=== PATIENT | male | born 1950 ===

== ENCOUNTER → 2021-01-14 14:23 | Outpatient (CLI) | payer MEDICARE, SELFPAY ==
--- NOTE | ~2021-01-14 | XR_ITS ---
EXAMINATION: XR sacroiliac joints min 3V DATE: 01/14/2021 15:01 INDICATION: Sacroiliac joint pain TECHNIQUE: AP and left and right oblique views of the sacroiliac joints were obtained. COMPARISON: 10/20/2017 FINDINGS: Bone alignment is normal. Sacral arches are intact. No fracture. Bilateral sacroiliac joint spaces ap pear normal and symmetric. No erosions to suggest inflammatory sacroiliitis. Bilateral hip joint spac es are also normal. Mild osteoarthritis at the bilateral lower lumbar facet joints. IMPRESSION: 1. Mild lower lumbar facet osteoarthritis. Otherwise unremarkable study with normal bilateral sacral iliac joints. Reviewed, dictated and finalized at location B. IMPRESSION: 1. Mild lower lumbar facet osteoarthritis. Otherwise unremarkable study with no rmal bilateral sacral iliac joints.
== END ==
DX: M53.3 Sacrococcygeal disorders, not elsewhere classified (principal); R53.81 Other malaise; M79.10 Myalgia, unspecified site; M25.50 Pain in unspecified joint; M51.36 Other intervertebral disc degeneration, lumbar region
CPT/HCPCS: 72202

== ENCOUNTER 2021-09-29 10:26 | Outpatient (CLI) | payer MEDICARE, SELFPAY ==
--- NOTE | ~2021-09-29 | US_ITS ---
US breast BI limited DATE: 09/29/2021 11:04 INDICATION: Nipple pain for 2 months TECHNIQUE: Real-time imaging of both breasts COMPARISON: None FINDINGS: No suspicious mass, shadowing, cyst or other sonographic abnormality in either breast is de tected IMPRESSION: BI-RADS Category 1: Negative Reviewed, dictated and finalized at Location A. Reviewed, dictated and finalized at location A.
== END 2021-09-29 10:27 | disposition home or self-care (01) ==
DX: N64.4 Mastodynia (principal)
CPT/HCPCS: 76642

== ENCOUNTER → 2023-01-07 08:09 | Outpatient (CLI) | payer MEDICARE, SELFPAY ==
--- NOTE | ~2023-01-07 | US_ITS ---
US abdomen limited INDICATION: Abnormal liver enzymes PROCEDURE: Realtime right upper abdominal ultrasound. COMPARISON: No prior studies for comparison. FINDINGS: The pancreas is normal without focal mass or pancreatic ductal dilation. Liver echotexture is normal without focal mass or intrahepatic biliary dilatation. There is normal directional flow i n the portal vein. The gallbladder is normal without stones, gallbladder wall thickening or pericholecystic fluid. Comm on bile duct measures 4.5 mm. No sonographic Gan's sign. IMPRESSION: 1: Normal limited abdominal ultrasound. Reviewed, dictated and finalized at location B.
== END ==
DX: R74.8 Abnormal levels of other serum enzymes (principal)
CPT/HCPCS: 76705

== ENCOUNTER 2025-01-20 19:25 | Emergency (ER) | payer MEDICARE, OTHER, SELFPAY ==
--- NOTE | ~2025-01-20 | CT_ITS ---
EXAMINATION: CT lumbar spine wo con COMPARISON: None HISTORY: Pain, prev sugery, leg numbess TECHNIQUE: Axial images were obtained through the spine without IV contrast. Coronal, sagittal reconstruction images were obtained from the axial views. CT scan performed using dose optimization techniques including the following automated exposure control; adjustment of mA and/or kV; use of iterative reconstruction technique. Automatic exposure control was used to reduce radiation dose. Permanent radiation dose record is archived to PACS. FINDINGS: No acute fracture identified. 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 The remaining disc heights are intact. Soft tissues unremarkable. Impression: No acute abnormality. Reviewed, dictated and finalized at location P. Impression: No acute abnormality.
[2025-01-20 20:13] VITALS: BP 166/74; PULSE 100; RESP 18; TEMP 36.6; O2SAT 95
--- NOTE | 2025-01-20 23:00 | ED.GENADULT ---
HPI - General Adult General Chief complaint: Extremity Problem,Nontraumatic Stated complaint: RIGHT LEG PAIN/NUMBNESS/TINGLING Time Seen by Provider: 01/20/25 22:44 Source: patient and family Mode of arrival: ambulatory Limitations: no limitations History of Present Illness HPI narrative: Patient is a 74-year-old male presents to the emergency department complaining of shooting pain and paresthesias to his right leg that started this afternoon around 3:00 p.m. when he was walking upstairs insert only felt the shooting pain going down his right leg along the posterior aspect all the way down to his foot. Patient notes he [facility] and has an upcoming appointment with his spinal specialist in 1 week and has a massage scheduled for Tuesday. Patient is that he has not had any radiculopathy since having the surgery here patient has the pain comes from is right buttock and not from his back. Patient states seems to be worsening standing straight up. Patient took his home tramadol, gabapentin, and methocarbamol prior to coming in and is already feeling a lot better. Patient notes that the paresthesias along the posterior of aspect of his leg seen event resolved but he is still having new numbness to the lateral aspect of his right foot which he had had before. Patient notes that he has chronic decreased dorsiflexion strength of his right ankle. Patient also notes that he has never had reflexes in his bilateral patella or Achilles whenever they get tested so that is not new. Patient denies urinary incontinence, stool incontinence, use of blood thinners, fever, saddle anesthesia, chest pain, difficulty breathing, back pain. Patient notes he has not been on any steroids in a long time heavy since before the surgery. Patient denies any new weakness. Related Data Home Medications ?Medication ?Instructions ?Recorded ?Confirmed ?Last Taken ?Type abatacept 50 mg/0.4 mL mg subcut 10/28/21 10/28/21 Unknown History subcutaneous syringe (Orencia) allopurinol 100 mg tablet 100 mg PO DAILY 10/28/21 10/28/21 Unknown History alprazolam 0.5 mg tablet 0.5 mg PO DAILY 10/28/21 10/28/21 Unknown History ascorbic acid (vitamin C) 1,000 mg 1 g PO DAILY 10/28/21 10/28/21 Unknown History capsule aspirin 81 mg tablet,delayed 81 mg PO DAILY 10/28/21 10/28/21 Unknown History release atorvastatin 10 mg tablet 10 mg PO DAILY 10/28/21 10/28/21 Unknown History buspirone 15 mg tablet 15 mg PO BID 10/28/21 10/28/21 Unknown History chlorthalidone 25 mg tablet 25 mg PO DAILY 10/28/21 10/28/21 Unknown History cholecalciferol (vitamin D3) 25 25 mcg PO DAILY 10/28/21 10/28/21 Unknown History mcg (1,000 unit) capsule doxazosin 1 mg tablet 1 mg PO DAILY 10/28/21 10/28/21 Unknown History leflunomide 20 mg tablet 20 mg PO DAILY 10/28/21 10/28/21 Unknown History lisinopril 30 mg tablet 30 mg PO DAILY 10/28/21 10/28/21 Unknown History testosterone enanthate 75 mg/0.5 75 mg subcut WEEKLY 10/28/21 10/28/21 Unknown History mL subcutaneous auto-injector vitamin B complex (B 1 tablet PO DAILY 10/28/21 10/28/21 Unknown History Complex-Vitamin B12 tablet) zolpidem 10 mg tablet PO 10/28/21 10/28/21 Unknown History Allergies Allergy/AdvReac Type Severity Reaction Status Date / Time oxycodone Allergy Severe Depression Verified 01/20/25 20:17 Review of Systems Review of Systems: A 10 system review of systems was completed on the patient and is negative except for what is stated in the HPI. Nursing and ancillary documentation was reviewed. PMFSH Past Medical History Medical History Anxiety Arthritis Gout Joint pain Weakness Family History Family History (Updated 10/28/21 @ 10:46 by Kamila Oden MA) Other Breast cancer Hypertension Social History Social History (Updated 10/28/21 @ 10:47 by Kamila Oden MA) Smoking status: Never smoker Alcohol intake: current Substance use: never Substance use type: does not use Living arrangements: with family Exam Narrative: CONST: No acute distress. Well nourished. HENMT: Head is normocephalic and atraumatic. Moist mucous membranes. No posterior oropharynx erythema. EYES: No scleral icterus. No conjunctival injection or pallor. PERRL. NECK: No meningeal signs. RESP: Able to speak in full sentences. Normal respiratory effort. CTAB. CARDIO: Regular rate. Regular rhythm. 2+ DP and radial pulses bilaterally. GI: Nondistended. No tenderness to palpation. Soft. : No CVA tenderness to palpation. SKIN: No rashes or lesions noted on exposed skin. NEURO: Oriented x3. Moves all extremities. EXTREM/MSK/BACK: No pedal edema. No midline vertebral tenderness to palpation or palpable step-offs. Negative straight leg raise bilaterally. Bilateral patellar and Achilles reflexes are absent. Patient is on the decreased dorsiflexion strength of the right ankle compared to the left. Bilateral plantar strength is symmetric. Sensation intact to light touch throughout the bilateral lower extremities except for the S1 distribution mother with lower extremity has lack of sensation to light touch. Capillary refill is less than 2 seconds in all toes of the bilateral lower extremities. No strength deficits of the bilateral knees bilateral hips. No saddle anesthesia. PSYCH: Normal affect. Course Vital Signs Vital signs: Vital Signs Temperature 97.9 F 01/20/25 20:13 Pulse Rate 100 01/20/25 20:13 Respiratory Rate 18 01/20/25 20:13 Blood Pressure 166/74 H 01/20/25 20:13 Pulse Oximetry 95 01/20/25 20:13 Oxygen Delivery Room Air 01/20/25 20:13 Temperature 97.9 F 01/20/25 20:13 Pulse Rate 100 01/20/25 20:13 Respiratory Rate 18 01/20/25 20:13 Blood Pressure 166/74 H 01/20/25 20:13 Pulse Oximetry 95 01/20/25 20:13 Oxygen Delivery Room Air 01/20/25 20:13 Medical Decision Making [facility] Narrative Medical decision making narrative: Patient presents with the above complaint. Initial vitals are remarkable for no significant abnormalities. Physical examination as noted above. Differential diagnosis includes was not limited to: Lumbar radiculopathy, muscle spasm, piriformis syndrome. Patient was ordered a CT of the lumbar spine from the waiting room due to nurse reporting new numbness and her recent surgery. CT of the lumbar spine report shows no evidence of acute fracture or traumatic subluxation. Posterior spinal fusion L4-L5 with interbody disc age. Overlying paraspinal edema and subcutaneous stranding, likely postsurgical in nature. No definite discrete fluid collection. Significant central canal soft tissue fullness at L4-L5 level. Consider MRI for further evaluation. I spoke with Neurosurgery on-call Dr. Ponce who notes to start the patient on a Medrol Dosepak and have follow-up on Tuesday with his spinal specialist for an MRI with strict return precautions, notes that he is going to send an email to Dr. Ayala to arrange this. Patient ordered dexamethasone and prescription for a Medrol Dosepak. Patient was reassessed at the bedside. No changes in physical exam. Patient is in no acute distress. The patient has remained stable throughout the entire ED visit. Counseled patient regarding diagnostic results and potential diagnosis. Anticipatory guidance provided. Patient and educated on signs and symptoms of cord compression and reasons to immediately return to the emergency department. Patient instructed to follow up with Dr. Tomlin tomorrow for an MRI. Patient counseled on: false reassurance from an emergency department evaluation; no current evidence of a medical emergency; return immediately for any new, recurrent, worsening, concerning, or refractory symptoms. Patient prescribed medrol dose pack. Prescription sent to preferred pharmacy. Medications discussed with patient. Additional verbal and printed discharge instructions were given and discussed with the patient. Patient verbally acknowledges understanding of condition and discharge instructions. All questions were answered to the patient's satisfaction. Patient is in agreement with the plan of care. The patient is stable for discharge and was discharged without incident. Vital Signs Vital Signs: Vital Signs Temperature 97.9 F 01/20/25 20:13 Pulse Rate 100 01/20/25 20:13 Respiratory Rate 18 01/20/25 20:13 Blood Pressure 166/74 H 01/20/25 20:13 Pulse Oximetry 95 01/20/25 20:13 Oxygen Delivery Room Air 01/20/25 20:13 Temperature 97.9 F 01/20/25 20:13 Pulse Rate 100 01/20/25 20:13 Respiratory Rate 18 01/20/25 20:13 Blood Pressure 166/74 H 01/20/25 20:13 Pulse Oximetry 95 01/20/25 20:13 Oxygen Delivery Room Air 01/20/25 20:13 Discharge Plan Discharge Clinical Impression: Numbness of right foot Radiculopathy Qualifiers: Spinal region: unspecified Qualified Code(s): M54.10 - Radiculopathy, site unspecified Patient Disposition: Home Condition: Stable Instructions: Antibiotic Form, Paresthesia (ED), Lumbar Radiculopathy (ED) Additional Instructions: I spoke with our neurosurgeon Dr. Ponce who recommends to start you on a Medrol Dosepak, I have prescribed to a Medrol Dosepak, our neurosurgeon also notes that he is sending an email to your spinal specialist Dr. Sutherland to became aware of what is going on and our neurosurgeon 1 C2 follow-up with your spinal specialist Tuesday for an MRI, call your spinal specialist 1st thing in morning to arrange this. Take the steroids as prescribed. Take your home muscle relaxers and pain medications as prescribed. Return immediately to the emergency department for any new or concerning symptoms especially urinary incontinence, stool incontinence, fever, lack of sensation in your groin, new weakness, or any emergent concerns for life, limb, eyesight. Patient Language: Urdu Prescriptions: New methylprednisolone [Medrol (Gallo)] 4 mg tablets,dose pack See Rx Instructions PO .COMPLEX Qty: 21 0RF Rx Instructions: for 6 days No Action leflunomide 20 mg tablet 20 mg PO DAILY atorvastatin 10 mg tablet 10 mg PO DAILY lisinopril 30 mg tablet 30 mg PO DAILY chlorthalidone 25 mg tablet 25 mg PO DAILY doxazosin 1 mg tablet 1 mg PO DAILY allopurinol 100 mg tablet 100 mg PO DAILY buspirone 15 mg tablet 15 mg PO BID alprazolam 0.5 mg tablet 0.5 mg PO DAILY testosterone enanthate 75 mg/0.5 mL auto-injector 75 mg subcut WEEKLY Orencia 50 mg/0.4 mL syringe subcut aspirin 81 mg tablet,delayed release (DR/EC) 81 mg PO DAILY cholecalciferol (vitamin D3) 25 mcg (1,000 unit) capsule 25 mcg PO DAILY vitamin B complex [B Complex-Vitamin B12] Tablet 1 tablet PO DAILY ascorbic acid (vitamin C) 1,000 mg capsule 1 g PO DAILY zolpidem 10 mg tablet PO Follow-up/Referrals: John Sutherland M.D. [Physician, Neurosurgery] - 1 Day UNKNOWN,DOCTOR [Primary Care Provider] Time of Disposition: 23:19
--- OUTSIDE RECORDS SUMMARY | 2025-01-20 23:06 | XMS_ITS | Encounter Summary ---
Author Organization [employer] Address [address] [place] [address] Care Team Providers Care Pulp Grinder And Blender Name Role Phone George Beyer MD Primary Care Provider [phone] Encounter Details Date Type Department Care Team (Latest Contact Info) Description 03/21/2008 Outpatient Historical [facility] Francisco Jordan MD [address] [facility] [address] [place] [address] Unspecified Sleep Disturbance; Unspecified Sleep Apnea; Other Dyspnea and Respiratory Abnormality Social History Tobacco Use Types Packs/Day Years Used Date Smoking Tobacco: Never Assessed Sex and Gender Information Value Date Recorded Sex Assigned at Not on file Legal Sex Male 5:39 AM [employer] Gender Identity Not on file Sexual Orientation Not on file documented as of this encounter Plan of Treatment Not on file documented as of this encounter Visit Diagnoses Diagnosis Sleep disturbance, unspecified Unspecified sleep apnea Other dyspnea and respiratory abnormality documented in this encounter Care Teams Pulp Grinder And Blender Relationship Specialty Start Date End Date George Beyer MD [address] [place] [address] PCP - General 02/29/08 documented as of this encounter
--- OUTSIDE RECORDS SUMMARY | 2025-01-20 23:06 | XMS_ITS | Encounter Summary ---
Author Organization [facility] Healthcare Address [address] [place] [address] Care Team Providers Care [employer] Business Teacher Name Role Phone Nicol Nielsen MD Unavailable Nicol Nielsen MD Primary Care Provider [phone] John Sutherland MD Unavailable [phone] Encounter Details Date Type Department Care Team (Late st Contact Info) Description 09/02/2023 Orders Only Internal Medicine Kathy Kolb, RUSSEL [address] [place], [place] [id number] Annual visit for general adult medical examination with abnormal findings (Primary Dx) Social History Tobacco Use Types Packs/Day Years Used Date Smoking Tobacco: Former Smokeless Tobacco: Never Alcohol Use Standard Drinks/Week Comments Yes 0 (1 standard drink = 0.6 oz pur e alcohol) AUDIT-C Answer Date Recorded Q1: How often do you have a drink containing alcohol? 4 or more times a week 07/09/2021 Q2: How many drinks containi ng alcohol do you have on a typical day when you are drinking? 1 or 2 Q3: How often do you have si x or more drinks on one occasion? Never 07/09/2021 Personal Safety Answer Date Recorded Getting School Help Needed Not on file 03/24 Sex and Gender Information Value Date Recorded Sex Assigned at Not on file Legal Sex Male 11:29 PM RESIDENT INTERN Gender Identity Male 01/04/2024 5:29 PM CDT Sexual Orientation Straight 10/17/2019 5: 47 PM CDT documented as of this encounter Plan of Treatment Upcoming Encounters Date Type Department Care Team (Late st Contact Info) Description 01/25/2025 7:30 AM CDT Hospital Encounter [facility] [place] [phone] Abner Brambila MD [address] [facility] [address] [place] [address] 01/25/2025 7:30 AM CDT Anesthesia Event [facility] [address] [place] [phone] Karishma Heller NP [address] [place] [address] 01/25/2025 7:30 AM CDT - 01/25/2025 10:00 AM CDT Surgery [facility] [place] [phone] Abner Brambila MD [id number] [place] [address] Laparoscopic Cholecystectomy with Cholangiograms, possible Open Scheduled Orders Name Type Priority Associated Diagnoses Orde r Schedule CBC with auto differential Lab Routine Annual visit for general adult medical examination with abnormal findings Expected: 09/05/2023, Expires: 09/01/2024 Lipid panel Lab Routine Annual visit for general adult medical examination with abnormal findings Expected: 09/02/2023, Expires: 09/01/2024 Thyroid Function Snyder Lab Routine Annual visit for general adult medical examination with abnormal findings Expected: 09/02/2023, Expires: 09/01/2024 Comprehensive metabolic panel Lab Routine Annual visit for general adult medical examination with abnormal findings Expected: 09/02/2023, Expires: 09/01/2024 CRP (cardiac risk) Lab Routine Annual visit for general adult medical examination with abnormal findings Expected: 09/05/2023, Expires: 09/01/2024 Gamma GT Lab Routine Annual visit for general adult medical examination with abnormal findings Expected: 09/05/2023, Expires: 09/01/2024 Hemoglobin A1c Lab Routine Annual visit for general adult medical examination with abnormal findings Expected: 09/05/2023, Expires: 09/01/2024 Insulin, total Lab Routine Annual visit for general adult medical examination with abnormal findings Expected: 09/05/2023, Expires: 09/01/2024 Urinalysis reflex to microscopic and culture Urine, clean voided Microbiology Routine Annual visit for general adult medical examination with abnormal findings Expected: 09/05/2023, Expires: 09/01/2024 Scheduled Procedures Name Priority Associated Diagnoses Date/Ti me LAPAROSCOPIC CHOLECYSTECTOMY WITH CHOLANGIOGRAMS Gall stones Biliary sludge Gallbladder polyp Ventral hernia without obstruction or gangrene 01/25/2025 7:30 AM CDT REPAIR UMBILICAL HERNIA Gall stones Biliary sludge Gallbladder polyp Ventral hernia without obstruction or gangrene 01/25/2025 7:30 AM CDT documented as of this encounter Results * (ABNORMAL) CBC with auto differential (10/21/2023 8:23 AM CDT) Pathologist [facility] WBC 7.8 3.8 - 9.9 K/cumm Hgb 12.1(L) 13.0 - 17.5 g/dL CERNER CH Hct 39.3 38.9 - 50.3 % CERNER CH Plt 244 150 - 400 K/cumm [facility] CH MPV 10.4 9.1 - 12.3 fL CERNER RBC 3.66(L) 4.30 - 5.80 M/cumm [facility] CH MCV 107.4(H) 81.3 - 96.4 fL CERNER MCH 33.1 27.1 - 33.3 pg [facility] CH MCHC 30.8(L) 32.3 - 35.7 g/dL [facility] CH RDW CV 14.5 11.1 - 14.9 % C[facility] CH RDW SD 57.2(H) 35.7 - 48.1 fL [facility] NRBC abs 0.00 0.00 - 0.01 K/cumm [facility] CH Blood 10/21/2023 8:23 AM CDT 10/21/2023 2:00 PM CDT Kathy Kolb NP LAB [place]LOOD [place] [address] [address] [place] [address] * (ABNORMAL) Comprehensive metabolic panel (10/21/2023 8:23 AM CDT) Sodium 139 135 - 145 mmol/L Potassium, pl 5.6(H) 3.3 - 4.9 mmol/L [facility] Chloride 106 97 - 110 mmol/L [facility] CH CO2 22 22 - 32 mmol/L [facility] CH Anion gap 11 2 - 15 mmol/L [facility] BUN 28(H) 6 - 25 mg/dL [facility] Creatinine 1.33(H) 0.80 - 1.30 mg/dL [facility] Glucose 94 70 - 199 mg/dL CERNER CH Comment: Interpretive Data Fasting glucose >/= 126 mg/dl is diagnostic for diabetes. Fasting is defined as no caloric intake for at least 8 hours. Fasting glucose between 100 mg/dl to 125 mg/dl is diagnostic of prediabetes. In a patient with classic symptoms of hyperglycemia or hyperglycemic crisis, a random glucose >/= 200 mg/dl is diagnostic for diabetes. In the absence of unequivocal hyperglycemia, results should be confirmed by repeat testing. The classification and Diagnosis of Diabetes Diabetes Care 202; 46: S19-S40. Current interpretive data was last revised 2022. Calcium 9.2 8.5 - 10.3 mg/dL [facility] Bilirubin, total 0.6 0.1 - 1.2 mg/dL [facility] CH Protein, pl 6.9 6.5 - 8.5 g/dL [facility] Albumin 4.1 3.5 - 5.0 g/dL [facility] Alk phos 55 40 - 130 Units/L [facility] ALT 33 7 - 55 Units/L [facility] AST 24 10 - 50 Units/L [facility] Blood 10/21/2023 8:23 AM CDT 10/21/2023 2:00 PM CDT Kathy Kolb NP LAB BLOOD ORDERABLES Final Result Performing Organization Address [facility]/ZIP Co de Phone Number GERTRUDIS WARNER [phone] [address] [place] [place] [address] * CRP (cardiac risk) (10/21/2023 8:23 AM CDT) Pathologist [facility] hsCRP 0.87 mg/L Comment: Interpretive data Adult only - values greater than or equal to 10 mg/L are consistent with infection or inflammation. Individuals with evidence of active infection, systemic inflammatory processes, or trauma should not be tested until these conditions have abated. When using HS CRP to assess cardiovascular risk, two measurements should be taken, two weeks apart (averaging results). The CDC/AHA recommended the following HS CRP cut off points (tertiles) for CVD assessment. Adult low risk <1.0 mg/L Average risk 1.0 - 3.0 mg/L High Risk >3.0 mg/L Current interpretive data was last revised on 2017. Testing performed by: [facility], [address] [place]., [address] Blood 10/21/2023 8:23 AM CDT 10/24/2023 8:55 AM CDT us Kathy Kolb NP LAB BLOOD ORDERABLES Final Result Performing Organization Address [facility] Co de Phone Number GERTRUDIS WARNER [phone] [address] [place] [place] [address] * Gamma GT (10/21/2023 8:23 AM CDT) GGT 37 10 - 50 Units/L Blood 10/21/2023 8:23 AM CDT 10/21/2023 2:00 PM CDT us Kathy Kolb WIRE CHIEF LAB BLOOD ORDERABLES Final Result Performing Organization Address City/[facility]/ZIP Co de Phone Number GERTRUDIS WARNER [phone] [address] [place] [address] * (ABNORMAL) Hemoglobin A1c (10/21/2023 8:23 AM CDT) Pathologist [facility] Hgb A1C 5.7(H) 4.0 - 5.6 % Estimated Average Glucose 117 mg/dL GERTRUDIS WARNER Comment: The ADA recommends reporting an estimated Average Glucose (eAG) with all Hemoglobin A1c results using the equation derived from a study of 507 normal and diabetic adults. Minority populations were underrepresented and children were not included. (Diabetes Care 31:9246-4732, 2008). The eAG is not equivalent to a fasting glucose. Blood 10/21/2023 8:23 AM CDT 10/21/2023 2:00 PM CDT Kathy Kolb NP LAB BLOOD ORDERABLES Final Result Performing Organization Address City/[facility] Co de Phone Number GERTRUDIS [phone] [address] [employer] [place], [place] [id number] * Insulin, total (10/21/2023 8:23 AM CDT) [facility] Insulin See Comment 2.6 - 25.0 mcIUnit/m L Comment: Testing performed by: [facility], [place] [address]. Results to follow. Testing performed by: [facility], [address] [facility], [place]., [address] Blood 10/21/2023 8:23 AM CDT 10/21/2023 8:00 PM CDT Kathy Kolb NP LAB BLOOD ORDERABLES Final Result GERTRUDIS [address] [place] [address] * Lipid panel (10/21/2023 8:23 AM CDT) [facility] Cholesterol 128 30 - 199 mg/dL Comment: Interpretive Data Ages < or = 19 years Acceptable: <170 mg/dL Borderline high: 170-199 mg/dL High: >or= 200 mg/dL Ages > or = 20 years Desirable: <200 mg/dL Borderline high: 200-239 mg/dL High: >or= 240 mg/dL Literature References: 1. Expert Panel on Integrated Guidelines for Cardiovascular Health and Risk Reduction in Children and Adolescents. Pediatrics 2011;128:S213 2. NCEP Expert Panel. Circulation 2004;110:227 Current Interpretive Data was last revised on 2017. Triglycerides 47 <=149 mg/dL GERTRUDIS Comment: Interpretive Data Ages < or = 9 years Acceptable: <75 mg/dL Borderline high: 75-99 mg/dL High: >or= 100 mg/dL Ages 10 to 20 years Acceptable: <90 mg/dL Borderline high: 90-129 mg/dL High: >or= 130 mg/dL Ages > or = 20 years Desirable: <150 mg/dL Borderline high: 150-199 mg/dL High: 200-499 mg/dL Very high: >or= 499 mg/dL Literature References: 1. Expert Panel on Integrated Guidelines for Cardiovascular Health and Risk Reduction in Children and Adolescents. Pediatrics 2011;128:S213 2. NCEP Expert Panel. Circulation 2003;110:227 Current Interpretive Data was last revised on 2017. HDL 51 >=40 mg/dL GERTRUDIS Comment: Interpretive Data Ages < or = 19 years Acceptable: >45 mg/dL Borderline low: 40-45 mg/dL Low: <40 mg/dL Ages > or = 20 years Desirable: >or= 60 mg/dL Low: <40 mg/dL Literature References: 1. Expert Panel on Integrated Guidelines for Cardiovascular Health and Risk Reduction in Children and Adolescents. Pediatrics 2011;128:S213 2. NCEP Expert Panel. Circulation 2003;110:227 Current Interpretive Data was last revised on 2017. LDL, calculated 68 <=129 mg/dL GERTRUDIS Comment: Interpretive Data Ages < or = 19 years Acceptable: <110 mg/dL Borderline high: 110-129 mg/dL High: >or= 130 mg/dL Ages > or = 20 years Optimal: <100 mg/dL Near optimal: 100-129 mg/dL Borderline high: 130-159 mg/dL High: >160 mg/dL Literature References: 1. Expert Panel on Integrated Guidelines for Cardiovascular Health and Risk Reduction in Children and Adolescents. Pediatrics 2011;128:S213 2. NCEP Expert Panel. Circulation 2003;110:227 Current Interpretive Data was last revised on 2017. Non-HDL Cholesterol 77 mg/dL GERTRUDIS Comment: Interpretive Data Ages < or = 19 years Acceptable: <120 mg/dL Borderline high: 120-144 mg/dL High: >145 mg/dL Ages > or = 20 years When triglycerides are >200 mg/dL, Non-HDL cholesterol is a secondary target of therapy with treatment goals that are 30 mg/dL greater than the LDL cholesterol target. Literature References: 1. Expert Panel on Integrated Guidelines for Cardiovascular Health and Risk Reduction in Children and Adolescents. Pediatrics 2011;128:S213 2. NCEP Expert Panel. Circulation 2004;110:227 Current Interpretive Data was last revised on 2017. Chol/HDL ratio 3 [facility] Blood 10/21/2023 8:23 AM CDT 10/21/2023 2:00 PM CDT Kathy Kolb NP LAB BLOOD ORDERABLES Final Result Performing Organization Address [facility] de Phone Number GERTRUDIS [address] [place] [address] * Thyroid Function Snyder (10/21/2023 8:23 AM CDT) TSH 0.53 0.30 - 4.20 mcIUnit/mL Blood 10/21/2023 8:23 AM CDT 10/21/2023 2:00 PM CDT Kathy Kolb NP LAB BLOOD ORDERABLES Final Result Performing Organization Address [facility] de Phone Number [facility] [address] [facility] [place] [address] * Urinalysis reflex to microscopic and culture Urine, clean voided (10/21/2023 8:23 AM CDT) Color, ur Straw Yellow Clarity, ur Clear Clear [facility] Specific gravity, ur 1.011 1.003 - 1.030 [facility] pH, urine 5.0 GERTRUDIS Comment: Interpretive Data U rine pH is affected by diet, medications, systemic acid-base disturbances, and renal tubular function. pH may affect urinary stone formation. For example, urine pH below 6.0 may help reduce the tendency for calcium phosphate stones and pH greater than 6.0 may reduce the tendency for uric acid stone formation. Source: [facility] Current Interpretive Data was last revised on 2017 Protein, ur ql Negative Negative [facility] CH Glucose, ur ql Negative Negative [facility] Ketones, ur Negative Negative [facility] CH Bilirubin, ur Negative Negative [facility] CH Blood, ur Negative Negative [facility] Urobilinogen, ur <2.0 <2.0 mg/dL [facility] Nitrite, ur Negative Negative [facility] Leukocyte esterase, ur Negative Negative [facility] CH UA reflex comment Reflex conditions for microscopic UA and culture not met. CERNER Urine, clean voided 10/21/2023 8:23 AM CDT 10/21/2023 1:57 PM CDT us Kathy Kolb NP LAB MICROBIOLOGY - GENERAL ORDERABLES Final Result GERTRUDIS [address] [address] [place] [address] documented in this encounter Visit Diagnoses Diagnosis Annual visit for general adult medical examination with abnormal findings- Primary Gall stones Calculus of gallbladder without mention of cholecystitis or obstruction Biliary sludge Other specified disorders of biliary tract Gallbladder polyp Cholesterolosis of gallbladder Ventral hernia without obstruction or gangrene Unspecified ventral hernia without mention of obstruction or gangrene documented in this encounter Additional Health Concerns Infection Onset Date Last Indicated Resolved Time COVID: Suspected 04/30/2024 04/30/2024 04/30/2024 9:54 PM RESIDENT INTERN documented as of this encounter Care Teams [employer] Business Teacher Relationship Specialty Start Date End Date Nicol Nielsen MD [address] [place] [address] PCP - General Internal Medicine 10/09/21 Nicol Nielsen MD Referring Physician Internal Medicine 11/10/17 [place] [address] [place] [address] Surgeon Neurosurgery 10/17/24 documented as of this encounter
--- OUTSIDE RECORDS SUMMARY | 2025-01-20 23:06 | XMS_ITS | Clinical Summary ---
Author Organization [facility] Address [address] [place] [address] Phone Care Team Providers Care Campus Ambassador Name Role Phone George Beyer MD Primary Care Provider [phone] Allergies No known active allergies Medications NAPROXEN 500 mg Oral Tab Take 500 mg by mouth 2 times daily with meals. Active HYDROCODONE-AC ETAMINOPHEN 5-500 mg Oral Tab Take 1 Tab by mouth every 4 hours as needed for Pain. Active TESTOSTERONE CYPIONATE 200 mg/mL IM Oil Inject 200 mg by intramuscular injection see administration instructions. One injection Monthly Active AMBIEN CR 12.5 mg Oral TbMP Take 12.5 mg by mouth nightly as needed for Insomnia. Active atorvastatin (LIPITOR) 10 mg Oral TabIndications :Hyperlipidemi a Take 1 Tab by mouth daily. 90 Tab 3 03/13/200 8 Active Active Problems Problem Noted Date Diagnosed Date Obstructive sleep apnea (adult) (pediatric) 08/09 Routine general medical exam ination at a health care facility 03/06/2008 Screening for prostate cancer 03/06/2008 Male hypogonadism 03/05/2008 Sleep apnea 03/05/2008 Family History Medical History Relation Name Comments Healthy Brother Healthy Daughter Stroke Father Cancer Mother Diabetes Mother Healthy Sister 1 Healthy Sister 2 Healthy Son Colon Cancer Neg Hx Relation Name Status Comments Brother Alive Daughter Alive Father Mother Sister 1 Alive Sister 2 Alive Son Alive Social History Tobacco Use Types Packs/Day Years Used Date Smoking Tobacco: Former Cigarettes Q uit: 03/05/1991 Alcohol Use Standard Drinks/Week Comments Yes 11.7 (1 standard drink = 0.6 oz pure alcohol) Sex and Gender Information Value Date Recorded Sex Assigned at Not on file Legal Sex Male 5:39 AM CABLEMAN Gender Identity Not on file Sexual Orientation Not on file Last Filed Vital Signs Vital Sign Reading Time Taken Comments Blood Pressure 124/72 03/05/2008 10:39 AM CABLEMAN B/ P IN RA Pulse 72 03/05/2008 10:39 AM CABLEMAN Temperature 37.2 C (98.9 F) 03/05/2008 10:39 AM CABLEMAN Respiratory Rate - - Oxygen Saturation - - Inhaled Oxygen Concentration - - Weight 100.2 kg (221 lb) 03/05/2008 10:39 AM CABLEMAN Height 180.3 cm (5' 11) 03/05/2008 10:39 AM CABLEMAN Body Mass Index 30.82 03/05/2008 10:39 AM CABLEMAN Plan of Treatment Health Maintenance Due Date Last Done Comments DTAP/TDAP/TD VACCINES (1 - Tdap) 09/13/1970 FIT-DNA Q 3 years 09/13/1996 FIT/FOBT Q 1 year 09/13/1996 Flex Sig/CT Colonography Q 5 years 09/13/1996 PNEUMOCOCCAL VACCINE 50+ YEARS (1 of 1 - PCV) 09/14/19 02 ZOSTER VACCINE (1 of 2) 09/13/2001 COLORECTAL SCREENING 03/05/2013 03/05/2003 Colorectal Cancer Screening 03/05/2013 INFLUENZA VACCINE (#1) 2024 RSV VACCINE (60+ or ) (1 - 1-dose 75+ series) 09/13/2026 Care Teams Campus Ambassador Relationship Specialty Start Date End Date George Beyer MD [address] [address] PCP - General 02/29/08
--- OUTSIDE RECORDS SUMMARY | 2025-01-20 23:06 | XMS_ITS | Clinical Summary ---
Author Organization [facility] Address [address] [place] [address] Care Team Providers Care Vegetable I Farmworker Name Role Phone Nicol Nielsen MD Unavailable Nicol Nielsen MD Primary Care Provider [phone] John Sutherland MD Unavailable [phone] Allergies Active Allergy Reactions Criticality Noted Date Comments Oxycodone Anxiety Low 11/14/2012 Medications cholecalcifero l (VITAMIN D-3) 2,000 unit tablet Take 1 tablet (2,000 Units total) by mouth every morning 4 Active syringe with needle (SYRINGE 3CC/38JW3-9/2 ) 3 mL 21 gauge x 1 1/2 syringe Use to inject testosterone 100 Syringe 8 Active allopurinoL (ZYLOPRIM) 100 mg tablet Take 1 tablet (100 mg total) by mouth 2 (two) times a day Active ALPRAZolam (XANAX) 0.5 mg tablet Take 0.5-1 tablets (0.25-0.5 mg total) by mouth as needed 1 Active zolpidem CR (AMBIEN CR) 12.5 mg CR tabletIndicati ons:Sleep-Onse t Insomnia Take 1 tablet (12.5 mg total) by mouth nightly Active ascorbic acid (ascorbic acid with evan hips) 500 mg tablet,chewabl e Take 1 tablet/chew tab (500 mg total) by mouth every morning Active busPIRone (BUSPAR) 15 mg tabletIndicati ons:Generalize d Anxiety Disorder Take 1 tablet (15 mg total) by mouth 3 (three) times a day as needed Active losartan (COZAAR) 100 mg tablet Take 1 tablet (100 mg total) by mouth every morning Active golimumab (SIMPONI ARIA IV) Infuse IV Every 60 days Active testosterone cypionate (DEPO-TESTOTER ONE) 200 mg/mL injection Inject 0.75 mL (150 mg total) into the muscle as instructed every 14 (fourteen) days Active fluticasone propionate (FLONASE) 50 mcg/actuation nasal spray Administer 2 sprays into each nostril as needed Active gabapentin (NEURONTIN) 100 mg capsule Take 1-2 capsules (100-200 mg total) by mouth as needed Active aspirin 81 mg enteric coated tablet Take 1 tablet (81 mg total) by mouth nightly Active UNKNOWN TO PATIENT Take 1 tablet by mouth 2 (two) times a day Eye promise Active acetaminophen ER (TYLENOL) 650 mg 8 hr tablet Take 1 tablet (650 mg total) by mouth every 8 (eight) hours as needed for pain Active atorvastatin (LIPITOR) 20 mg tablet Take 1 tablet (20 mg total) by mouth every morning Active omeprazole (PriLOSEC) 20 mg capsule Take 1 capsule (20 mg total) by mouth nightly Active omeprazole (PriLOSEC) 10 mg capsule Take 2 capsules (20 mg total) by mouth nightly Discontin ued(Error ) traMADoL (ULTRAM) 50 mg tablet Take 1 tablet (50 mg total) by mouth every 6 (six) hours as needed for pain Discontin ued(Error ) S-ACETYLGLUTAT HIONE ORAL Take 1 tablet by mouth every morning Discontin ued(Error ) HYDROcodone-ac etaminophen (NORCO) 10-325 mg per tabletIndicati ons:Pain Take 1 tablet by mouth every 4 (four) hours as needed for pain 42 tablet 5 Discontin ued(Error ) methocarbamoL (ROBAXIN) 750 mg tablet Take 1 tablet (750 mg total) by mouth every 8 (eight) hours as needed for muscle spasms 60 tablet 5 025 Discontin ued(Error ) Active Problems Problem Noted Date Diagnosed Date Gall stones 12/26/2024 Biliary sludge 12/26/2024 Gallbladder polyp 12/26/2024 Ventral hernia without obstruction or gangrene 0 12/26/2024 Spinal stenosis of lumbar re gion without neurogenic claudication 10/17/2024 Spinal stenosis of lumbar region 09/28/2024 Spondylolisthesis of lumbar region 09/28/2024 Xerosis of skin 08/05/2023 Assessment & Plan (08/08/2023 7:59 AM CDT): Patient's main issue today is he has xerotic skin to bilateral plantar feet. This is not severe however to the patient, he feels it is severe. I discussed treatment options with the patient. I have recommended urea 40% cream as well as can use pumice stone. He is to monitor for further issues. Hallux rigidus of left foot 08/05/2023 Assessment & Plan (08/08/2023 8:00 AM CDT): He does exhibit severe degenerative changes of the 1st metatarsophalangeal joint of the left foot with significant hypertrophic dorsal and medial exostosis along the 1st metatarsal head. He has a 1st MPJ implant of the right foot which he has had relatively no issues with the. I discussed with him treatment options for the left foot. I explained if it became more symptomatic that it would recommend treatment options such as a carbon fiber foot plate versus steroid injection versus surgical management. He verbalized understanding. Hammer toe of left foot 08/05/2023 Assessment & Plan (08/08/2023 8:00 AM CDT): He does have flexible flexion contractures bilateral lesser digits. At this time these not symptomatic. He is to monitor for further issues. Breast pain 10/09/2021 Hypogonadism in male 06/21/2018 Assessment & Plan (11/07/2020 1:35 PM CDT): Testosterone level checked one week after last dose is mid range. Continue testosterone 150 mg (0.75 mL) ever 2 weeks. H/H and PSA are reasonable. Assessment & Plan (10/24/2019 2:43 PM CDT): Feels well. Continue testosterone 0.75 mL (150 mg) every 2 weeks. Check testosterone and CBC. Assessment & Plan (06/21/2018 8:51 AM CDT): -longstanding history. -continue testosterone cypionate 0.75ml (150mg) every 2 weeks. -checking testosterone in 2 weeks to ensure the reduced dose has lowered the levels into the normal range -checking testosterone and CBC in 6 months Elevated liver function tests 12/30/2017 Osteoarthritis of multiple joints 11/10/2017 Assessment & Plan (11/10/2017 7:53 AM CDT): Also likely component of pain Hand xrays in 10/26 showed OA changes of the hands, right > left. 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 Currently on otezla. Unfortunately his copay is over $1000 which is not feasible for him. He is getting samples until the end of the year when he gets new insurance. He has been on the medication for about 8 wks. Notes less swelling but still has to take tramadol for pain. He also has some OA contributing to his pain. Has tightness when he makes a fist. Patient is to continue current regimen. Will check routine labs today. Follow up in 8 wks, sooner if needed Assessment & Plan (11/10/2017 12:49 PM CDT): 67 yom w/ a history of psoriasis and longstanding joint pain. Pain has been present for 2-3 years and is mostly in the PIP joints, SI joints, and cervical spine. He takes tramadol and acetaminophen w/o some relief. He also gets monthly massages for his SI joint pain, which he reports helps. I discussed at length the findings of his work up w/ Mr. Samuel and his . He currently has normal liver, kidney, and muscle enzymes. The CBC revealed no abnormalities. There was no evidence of systemic inflammation, as the ESR and CRP were normal. There was no evidence hepatitis B/C or syphilis. The work up was also negative for the RF and anti-CCP. The JULITO was noted to be negative. The uric acid was normal. X-rays of the hands, wrists, feet, ankles, and SI joints did not show any erosions or evidence of inflammatory arthritis. His diagnostic findings and clinical exam are indicative of a seronegative spondyloarthropathy, psoriatic arthritis. We discussed starting him on otezla. I reviewed the side effects including but not limited to: nausea, stomach pain, and diarrhea; nasal congestion and sore throat. Otezla can worsen depression. If pt experiences worsening depression or is having thoughts of suicide while taking the medication, they have been instructed to stop the medication and notify the office. Pt expressed understanding. He will follow up in 4 wks, sooner if needed Assessment & Plan (10/19/2017 5:02 PM CDT): 67 yom w/ a history of psoriasis and longstanding joint pain. Pain has been present for 2-3 years and is mostly in the PIP joints, SI joints, and cervical spine. He takes tramadol and acetaminophen w/o some relief. He also gets monthly massages for his SI joint pain, which he reports helps. He has had sporadic joint swelling of the ankles and a past history of plantar fasciitis. I suspect he has psoriatic arthritis. However, we will evaluate for additional autoimmune/inflammatory etiology. Pt will return in 3 wks to review testing and discuss treatment plan. Psoriasis 10/19/2017 Assessment & Plan (12/29/2017 11:56 AM CDT): Localized to elbows Currently on otezla Stable Assessment & Plan (11/10/2017 12:45 PM CDT): Localized to elbows. Currently stable Assessment & Plan (10/19/2017 4:59 PM CDT): Past history of. Resolved w/ topical application of an ointment. Hypercholesterolemia with hypertriglyceridemia 0 09/09/2015 Assessment & Plan (11/07/2020 1:35 PM CDT): Provided diet information for lowering triglycerides. This was not a fasting specimen. Hypertension 07/17/2014 Assessment & Plan (06/21/2018 8:53 AM CDT): Elevated readings in the clinic today. -we discussed that untreated HENRRY can worsen hypertension and testosterone therapy can worsen untreated HENRRY. We recommended going back to sleep medicine to see if they're new strategies they could try to help with his HENRRY -also recommended ambulatory blood pressure monitoring to help determine if he has HTN that should be treated, but patient declined -patient is willing to use a BP cuff at home and record the readings for about 2 weeks. Will send back to us. Resolved Problems Problem Noted Date Diagnosed Date Resolved Date Gout 11/22/2012 10/19/2017 Encounters Date Type Department Care Team Description 01/09/2025 8:15 AM CDT Pre-Admission Testing [facility] Pre Anesthesia Testing [address] [place] [phone] 11/28/2024 Orders Only Internal Medicine Nicol Nielsen MD Gallbladder polyp (Primary Dx) 11/27/2024 9:15 AM CDT - 11/27/2024 11:59 PM CDT Hospital Encounter [facility] Imaging Center at [address] [phone] Transaminitis; Gallbladder polyp Discharge Disposition: Discharge to home or self care 11/22/2024 Orders Only Internal Medicine Nicol Nielsen MD Transaminitis (Primary Dx); Gallbladder polyp 11/08/2024 8:25 AM CDT Lab [facility] [address] [place] [id number] Hyperlipidemia, unspecified hyperlipidemia type; Hypertension, essential; Abnormal serum enzyme level; Abnormal blood chemistry; Other nursing home (current) drug therapy 11/05/2024 Orders Only Internal Medicine Nicol Nielsen MD Hyperlipidemia, unspecified hyperlipidemia type (Primary Dx) 11/05/2024 Orders Only Internal Medicine Nicol Nielsen MD Hyperlipidemia, unspecified hyperlipidemia type (Primary Dx); Hypertension, essential; Abnormal serum enzyme level; Abnormal blood chemistry; Other nursing home (current) drug therapy from Last 3 Months Immunizations Immunization Administration Dates Next Due Influenza, Quadrivalent, Naomy l Culture-based MDCK, Preservative Free, Antibiotic Free, Intramuscular 03/30/2017 Influenza, Trivalent, IM (MDV) 05/27/2016,2014 Influenza, Trivalent, Preservative Free, Intramu scular 01/09/2014 Pneumococcal Conjugate PCV 13 09/13/2016, 015 Pneumococcal Polysaccharide PPV23 05/12/2018 Tdap 07/17/2014 Surgical History Surgery Date Site/Laterality Comments SHOULDER SURGERY Shoulder Surgery - (Added by ) ROTATOR CUFF REPAIR Rotator Cuff Repair - (Added by Conv) FL FLUORO GUIDED LUMBAR PUNCTURE 01/02/2024 Right FL FLUORO GUIDED LUMBAR PUNCTURE 04/23/2024 Right CATARACT EXTRACTION W/ INTRAOCULAR LENS IMPLANT 04/11/2023 - 04/10/2024 Bilateral RETINA SURGERY 04/11/2023 - 04/10/2024 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 (pt unsure if just laser or incisional) Medical History Medical History Date Comments Allergic rhinitis Allergic rhini tis - (Added by Conv) Spinal stenosis of cervical region Stenosis, cervical spine - (Added by Conv) Radiculopathy of cervical region Cervical radiculopathy at C6 - (Added by Conv) Sprain of rotator cuff capsule R otator cuff (capsule) sprain - (Added by Conv) Vitamin D deficiency Vitamin D i nsufficiency - (Added by Conv) Other specified diseases of blood and blood-forming organs Macrocytosis without anemia - (Added by TW Conv) Umbilical hernia without obs truction or gangrene Umbilical hernia - (Added by TW Conv) Trigger finger Trigger finger - (Added by Conv) Obesity Obesity - (Added by TW Conv) Panic disorder without agoraphobia Severe anxiety with panic - (Added by Conv) Nonspecific elevation of lev els of transaminase and lactic acid dehydrogenase (LDH) Elevated alanine aminotransf erase (ALT) level - (Added by TW Conv) Prediabetes Prediabetes - (A dded by TW Conv) Mixed hyperlipidemia Hypercholes terolemia with hypertriglyceridemia - (Added by TW Conv) Metabolic syndrome Metabolic syn drome - (Added by TW Conv) Insomnia due to other mental disorder (CODE) Hyposomnia, insomnia or slee plessness associated with anxiety - (Added by TW Conv) Gout Gout - (Added by TW Conv) Osteoarthritis Osteoarthritis - (Added by TW Conv) Other specified dermatitis Excor iated eczema - (Added by TW Conv) Disorder of skin or subcutan eous tissue Inflammatory hyperkeratotic dermatosis - (Added by TW Conv) Dermatitis Dermatitis due t o unknown cause - (Added by TW Conv) Obesity Obesity - (Added by TW Conv) Mixed hyperlipidemia Hypercholes terolemia with hypertriglyceridemia - (Added by TW Conv) Panic disorder without agoraphobia Severe anxiety with panic - (Added by TW Conv) Osteoarthritis Osteoarthritis - (Added by TW Conv) Family History Medical History Relation Name Comments Heart disease Father Stroke Father Family history of cerebrovascular accident - (Added by TW Conv) Arthritis Mother Cancer Mother Family history of malignant neoplasm - (Added by TW Conv) Diabetes Mother Family history of diabetes mellitus - (Added by TW Conv) Rheum arthritis Mother Family histo ry of rheumatoid arthritis - (Added by TW Conv) Stroke Other Stroke Syndrome - (Added by TW Conv) Relation Name Status Comments Father Mother Other Social History Tobacco Use Types Packs/Day Years Used Date Smoking Tobacco: Former Smokeless Tobacco: Never Alcohol Use Standard Drinks/Week Comments Yes 4 (1 standard drink = 0.6 oz pur e alcohol) AUDIT-C Answer Date Recorded Q1: How often do you have a drink containing alcohol? 4 or more times a week 01/09/2025 Q2: How many drinks containi ng alcohol do you have on a typical day when you are drinking? 1 or 2 Q3: How often do you have si x or more drinks on one occasion? Never 01/09/2025 Personal Safety Answer Date Recorded Have you ever been in or are you currently in a harmful physical or emotional relationship or is someone making you feel afraid or unsafe? 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 Gender Identity Male 01/04/2024 5:29 PM CDT Sexual Orientation Straight 10/17/2019 5: 47 PM CDT Obstetrics History Last Filed Vital Signs Vital Sign Reading Time Taken Comments Blood Pressure 132/60 10/18/2024 8:25 AM CDT Pulse 94 10/18/2024 8:25 AM CDT Temperature 36.9 C (98.5 F) 10/18/2024 8:25 AM CDT Respiratory Rate 18 10/18/2024 8:25 AM CDT Oxygen Saturation 95% 10/18/2024 8:25 AM CDT Inhaled Oxygen Concentration - - Weight 99.8 kg (220 lb) 01/09/2025 7:54 AM CDT Height 180.3 cm (5' 11) 01/09/2025 7:54 AM CDT Body Mass Index 30.68 01/09/2025 7:54 AM CDT Plan of Treatment Upcoming Encounters Date Type Department Care Team (Late st Contact Info) Description 01/25/2025 7:30 AM CDT Hospital Encounter [facility] Operating Room [address] [place] [phone] Abner Brambila MD [address] [id number] 01/25/2025 7:30 AM CDT Anesthesia Event [facility] Operating Room [address] [place] [phone] Karishma Heller NP [address] [place] [address] 01/25/2025 7:30 AM CDT - 01/25/2025 10:00 AM CDT Surgery [facility] Operating Room [address] [place] [phone] Abner Brambila MD [address] [address] Laparoscopic Cholecystectomy with Cholangiograms, possible Open Scheduled Procedures Name Priority Associated Diagnoses Date/Ti me LAPAROSCOPIC CHOLECYSTECTOMY WITH CHOLANGIOGRAMS Gall stones Biliary sludge Gallbladder polyp Ventral hernia without obstruction or gangrene 01/25/2025 7:30 AM CDT REPAIR UMBILICAL HERNIA Gall stones Biliary sludge Gallbladder polyp Ventral hernia without obstruction or gangrene 01/25/2025 7:30 AM CDT Health Maintenance Due Date Last Done Comments Colon Cancer Screening-Colonoscopy 1950 Depression Screening 1950 Hepatitis B Screening 09/13/1969 Zoster Vaccine (2 of 3) 07/07/2015 05/12/2015 Well Visit 65+ 09/13/2016 DTaP/Tdap/Td Vaccine (2 - Td or Tdap) 07/17/2024 07/17/2014 Influenza Vaccine (#1) 2024 9, 03/30/2017, 05/27/2016, Additional history exists Fall Risk Assessment 01/09/2026 01/09/2025 Pneumococcal vaccine 65+ Completed 019, 05/12/2018, 09/13/2016, Additional history exists Abdominal Aortic Aneurysm (A AA) Screen Completed 09/22/2021 Hepatitis C Screening Completed 01/11/2024, 023 Prostate Cancer Screening-PSA Discontinued , 10/31/2023, 11/05/2020, Additional history exists Medical Devices Implanted Type Area Global Marketing Manager Device Identifier Shelf Expiration Date Model / Serial / Lot Orthofix Spinal Implants Screw Spinal Pedicle Multiaxial Top Loading Self Tapping Threaded Solid Firebird Titanium - [id number] Implanted:Qty: 4 on 10/17/2024 by John Sutherland MD at [facility] Right: Spine Lumbar Orthofix Spinal Implants / / Orthofix Spinal Implants Screw Spinal Set Pedicle Solid Kelly 1cc - [id number] Implanted:Qty: 4 on 10/17/2024 by John Sutherland MD at [facility] Right: Spine Lumbar Orthofix Spinal Implants / / Core Link [employer] L26 Mm X W10 Mm X H13 Mm 3d 7 D Straight Cage Spinal [id number] - [id number] Implanted:Qty: 1 on 10/17/2024 by John Sutherland MD at [facility] Left: Spine Lumbar Core Link [id number] 06/04/2028 [id number] 13 / / [id number] Core Link Foundation L26 Mm X W10 Mm X H13 Mm 3d 7 D Straight Cage Spinal [id number] - [id number] Implanted:Qty: 1 on 10/17/2024 by John Sutherland MD at [facility] Right: Spine Lumbar Core Link [id number] 04/23/2028 [id number] 13 / / [id number] Orthofix Spinal Implants Screw Bone 7.5mm 50mm Spine Selftap Md 44-5750 - [id number] Implanted:Qty: 3 on 10/17/2024 by John Sutherland MD at [facility] Right: Spine Lumbar Orthofix Spinal Implants [id number] / / Orthofix Spinal Implants Screw Bone 6.5mm 50mm Spine St Md 44-5698 - [id number] Implanted:Qty: 1 on 10/17/2024 by John Sutherland MD at [facility] Right: Spine Lumbar Orthofix Spinal Implants [id number] / / Orthofix Spinal Implants Ricky Spinal 40mm 5.5mm Firebird Thorclmbr Prebent Prelordose 52-6040 - [id number] Implanted:Qty: 1 on 10/17/2024 by John Sutherland MD at [facility] Right: Spine Lumbar Orthofix Spinal Implants 52-6040 / / Orthofix Spinal Implants Ricky Spinal 45mm 5.5mm Firebird Thorclmbr Prebent Prelordose 52-6045 - [id number] Implanted:Qty: 1 on 10/17/2024 by John Sutherland MD at [facility] Right: Spine Lumbar Orthofix Spinal Implants [id number] / / Procedures Procedure Name Priority Date/Time Associated Diagnosis Comments US RUQ Schedule Routine, Read Routine (OP Routine) 11/27/2024 10:11 AM CDT Transaminitis Gallbladder polyp EGFR Routine 11/08/2024 8:45 AM CDT Hyperlipidemia, unspecified hyperlipidemia type Hypertension, essential Abnormal serum enzyme level Abnormal blood chemistry CBC WITHOUT DIFFERENTIAL Routine 11/08/2024 8:45 AM CDT Hyperlipidemia, unspecified hyperlipidemia type Hypertension, essential Abnormal serum enzyme level Abnormal blood chemistry COMPREHENSIVE METABOLIC PANEL Routine 11/08/2024 8:45 AM CDT Hyperlipidemia, unspecified hyperlipidemia type Hypertension, essential Abnormal serum enzyme level Abnormal blood chemistry THYROID FUNCTION CASCADE Routine 11/08/2024 8:45 AM CDT Hyperlipidemia, unspecified hyperlipidemia type Hypertension, essential Abnormal serum enzyme level Abnormal blood chemistry LIPID PANEL Routine 11/08/2024 8:45 AM CDT Hyperlipidemia, unspecified hyperlipidemia type Hypertension, essential Abnormal serum enzyme level Abnormal blood chemistry INSULIN, TOTAL Routine 11/08/2024 8:45 AM CDT Hyperlipidemia, unspecified hyperlipidemia type Hypertension, essential Abnormal serum enzyme level Abnormal blood chemistry CRP, HIGH SENSITIVITY Routine 11/08/2024 8:45 AM CDT Hyperlipidemia, unspecified hyperlipidemia type Hypertension, essential Abnormal serum enzyme level Abnormal blood chemistry GAMMA GT Routine 11/08/2024 8:45 AM CDT Hyperlipidemia, unspecified hyperlipidemia type Hypertension, essential Abnormal serum enzyme level Abnormal blood chemistry PSA SCREEN Routine 11/08/2024 8:45 AM CDT Hyperlipidemia, unspecified hyperlipidemia type Hypertension, essential Abnormal serum enzyme level Abnormal blood chemistry TOTAL TESTOSTERONE Routine 11/08/2024 8: 45 AM CDT Hyperlipidemia, unspecified hyperlipidemia type Hypertension, essential Abnormal serum enzyme level Abnormal blood chemistry URINE CULTURE Routine 11/08/2024 8:45 AM CDT Hyperlipidemia, unspecified hyperlipidemia type Hypertension, essential Abnormal serum enzyme level Abnormal blood chemistry Other top lift compressor (current) drug therapy MISCELLANEOUS LAB TEST Routine 11/08/2024 8:45 AM CDT HEPATITIS C ANTIBODY Routine 01/11/2024 10:09 AM CDT Need for prophylactic chemotherapy Polyarticular psoriatic arthritis (HCC) Gout, unspecified CT ABDOMEN WO CONTRAST Schedule LELA, Read LELA (Appt Today, Awaiting Results) 09/22/2021 3:07 PM CDT Epigastric pain from Last 3 Months or Most Recently Relevant to Health Maintenance Results * US RUQ (11/27/2024 10:11 AM CDT) Anatomical Region Laterality Modality Abdomen N/A Ultrasound 11/27/2024 10:4 7 AM CDT Impressions 11/27/2024 10:47 AM CDT 1. Sludge and probably small stones in the gallbladder lumen. Mild gallbladder wall thickening but no fluid around the gallbladder. Negative Gan's sign. Clinical correlation recommended. 2. Largest gallbladder polyp measures 6 mm compared to 4 mm on 11/18/2023. 3. Hepatic steatosis. Electronically signed by: Javier Amaya M.D. Narrative 11/27/2024 10:47 AM CDT EXAM: RIGHT UPPER QUADRANT SONOGRAM. HISTORY: Gallbladder polyps. Elevated liver enzymes. COMPARISON: 11/18/2023. FINDINGS: Liver: The liver is 20 cm in length. There is mild diffuse hepatic steatosis. Gallbladder: Minimal sludge and possibly tiny stones. There is a 6 mm polyp and a 4 mm polyp. Gallbladder wall is mildly thickened at 4 mm. Negative Gan's sign reported. Bile ducts: There is no evidence of biliary ductal dilatation. The common bile duct measures 7 mm in greatest diameter. Pancreas: Largely obscured by bowel gas. Portal vein and IVC within normal limits. Procedure Note Javier Amaya MD - 11/27/2024 EXAM: RIGHT UPPER QUADRANT SONOGRAM. HISTORY: Gallbladder polyps. Elevated liver enzymes. COMPARISON: 11/18/2023. FINDINGS: Liver: The liver is 20 cm in length. There is mild diffuse hepatic steatosis. Gallbladder: Minimal sludge and possibly tiny stones. There is a 6 mm polyp and a 4 mm polyp. Gallbladder wall is mildly thickened at 4 mm. Negative Gan's sign reported. Bile ducts: There is no evidence of biliary ductal dilatation. The common bile duct measures 7 mm in greatest diameter. Pancreas: Largely obscured by bowel gas. Portal vein and IVC within normal limits. IMPRESSION: 1. Sludge and probably small stones in the gallbladder lumen. Mild gallbladder wall thickening but no fluid around the gallbladder. Negative Gan's sign. Clinical correlation recommended. 2. Largest gallbladder polyp measures 6 mm compared to 4 mm on 11/18/2023. 3. Hepatic steatosis. Electronically signed by: Javier Amaya M.D. us Kathy Kolb NP IMG US PROCEDURES Final Res ult * eGFR (11/08/2024 8:45 AM CDT) eGFR 70 >=60 mL/min/1. 73 m2 Comment: Interpretive Data Reference Interval Normal >/= 90 mL/min/1.73m2 Mildly decreased* 60 - 89 mL/min/1.73m2 Mildly to moderately decreased 45 - 59 mL/min/1.73m2 Moderately to severely decreased 30 - 44 mL/min/1.73m2 Severely decreased 15 - 29 mL/min/1.73m2 Kidney Failure < 15 mL/min/1.73m2 *Relative to young adult level Estimated glomerular filtration rate is determined by the 2020 CKD-EPI equation recommended by the National Kidney Foundation (A Unifying Approach to GFR Estimation: Recommendations of the NKF-ASK Task Force on Reassessing the Inclusion of Race in Diagnosing Kidney Disease, JASN 2020). The CKD-EPI equation should not be used for patients with unstable renal function and has not been validated in children and those over 70. Current interpretive data was last reviewed 2021. Blood 11/08/2024 8:45 AM CDT 11/08/2024 3:20 PM CDT us Kathy Kolb NP LAB BLOOD ORDERABLES Final Result [facility] [address] [place] [place] [address] * Thyroid Function [place] (11/08/2024 8:45 AM CDT) TSH 1.67 0.30 - 4.20 mcIUnit/mL Blood 11/08/2024 8:45 AM CDT 11/08/2024 3:20 PM CDT Kathy Kolb NP LAB BLOOD ORDERABLES Final Result Performing Organization Address [facility] Co de Phone Number [facility] [address] [place] [address] * PSA screen (11/08/2024 8:45 AM CDT) PSA-Total 0.90 <=6.20 ng/mL Comment: Interpretive Data AGE SEX REFERENCE INTERVAL 0 minutes-150 years Female None 0 minutes-49 years Male None 50-59 years Male 0-3.90 60-69 years Male 0-5.40 70-79 years Male 0-6.20 80-150 years Male 0-6.20 The Christ PSA Total assay procedure was used. Results from different manufacturers or methods may not be comparable. Serial testing should be performed using the same method. Current interpretive data last revised 21. Blood 11/08/2024 8:45 AM CDT 11/08/2024 3:20 PM CDT Kathy Kolb NP LAB BLOOD ORDERABLES Final Result Performing Organization Address City/[facility] Co de Phone Number [facility] [address] [place] [address] * (ABNORMAL) Insulin, total (11/08/2024 8:45 AM CDT) Insulin 42.2(H) 2.6 - 25.0 mcIUnit/mL Comment:Testing performed by : [facility], [address] [facility], [place]., [address] Blood 11/08/2024 8:45 AM CDT 11/08/2024 8:54 PM CDT us Kathy Kolb NP LAB BLOOD ORDERABLES Final Result Performing Organization Address [facility] Co de Phone Number [facility] [address] [employer] [place] [employer] [place] [address] * (ABNORMAL) CBC without differential (11/08/2024 8:45 AM CDT) WBC 6.72 3.80 - 9.90 K/cumm Hgb 10.6(L) 13.0 - 17.5 g/dL [facility] Hct 35.0(L) 38.9 - 50.3 % [facility] Plt 228 150 - 400 K/cumm [facility] MPV 10.9 9.1 - 12.3 fL [facility] RBC 3.33(L) 4.30 - 5.80 M/cumm [facility] MCV 105.1(H) 81.3 - 96.4 fL [facility] MCH 31.8 27.1 - 33.3 pg [facility] MCHC 30.3(L) 32.3 - 35.7 g/dL [facility] RDW CV 13.6 11.1 - 14.9 % [facility] RDW SD 51.4(H) 35.7 - 48.1 fL [facility] NRBC abs 0.00 0.00 - 0.01 K/cumm [facility] Blood 11/08/2024 8:4 5 AM CDT 11/08/2024 3:19 PM CDT us Kathy Kolb NP LAB BLOOD ORDERABLES Final Result [facility] [address] [place] [address] * (ABNORMAL) Urine culture Urine, clean voided (11/08/2024 8:45 AM CDT) Report Final Report: Less than 10,000 colonies/ml of Streptococcus agalactiae (Group B Streptococci) Penicillin is the drug of choice for Beta strep infections. If susceptibility testing is clinically indicated, please contact the Microbiology Lab within 7 days for susceptibilites ([phone]). (.) Organism STREPTOCOCCUS AGALACTIAE (GROUP B STREPTOCOCCI) [facility] Urine, clean voided 11/08/2024 8:45 AM CDT 11/08/2024 3:25 PM CDT Kathy Kolb NP LAB MICROBIOLOGY - GENERAL ORDERABLES Final Result Performing Organization Address City/[facility]/ZIP Co de Phone Number [facility] [address] [place] [address] * CRP (cardiac risk) (11/08/2024 8:45 AM CDT) hsCRP 3.85 mg/L Comment: Interpretive data Adult only - [...] interpretive data was last revised on 2017. Blood 11/08/2024 8:45 AM CDT 11/08/2024 3:20 PM CDT Kathy Kolb NP LAB BLOOD ORDERABLES Final Result Performing Organization Address City/[facility]/ZIP Co de Phone Number [facility] [address] Department [employer] [place], [place] [id number] * Total testosterone (11/08/2024 8:45 AM CDT) Testosterone 642.00 193.00 - 740.00 ng/dL Blood 11/08/2024 8:45 AM CDT 11/08/2024 3:20 PM CDT us Kathy Kolb [employer]PIAN DEVELOPER LAB BLOOD ORDERABLES Final Result Performing Organization Address City/[facility] Co de Phone Number [facility] [address] [facility] [employer] [place], [place] [id number] * (ABNORMAL) Gamma GT (11/08/2024 8:45 AM CDT) GGT 259(H) 10 - 50 Units/L Blood 11/08/2024 8:45 AM CDT 11/08/2024 3:20 PM CDT us Kathy Kolb NP LAB BLOOD ORDERABLES Final Result Performing Organization Address [facility] Co de Phone Number [facility] [address] [place] [address] * Lipid panel (11/08/2024 8:45 AM CDT) Cholesterol 164 30 - 199 mg/dL Comment: Interpretive Data [...] Data was last revised on 2017. Triglycerides 95 <=149 mg/dL [facility] Comment: Interpretive Data Ages < or = [...] Data was last revised on 2017. HDL 48 >=40 mg/dL [facility] Comment: Interpretive Data Ages < or = [...] was last revised on 2017. LDL, calculated 98 <=129 mg/dL [facility] Comment: Interpretive Data Ages < or = 19 years Acceptable: <110 mg/dL Borderline high: 110-129 mg/dL High: >or= 130 mg/dL Ages > or = 20 years Optimal: <100 mg/dL Near optimal: 100-129 mg/dL Borderline high: 130-159 mg/dL High: >160 mg/dL Calculated using the Mark LDL-C estimating equation. This equation was implemented on 2023. Prior to this date LDL-C was estimated using the Friedewald equation. Literature References: 1. Expert Panel on Integrated Guidelines for Cardiovascular Health and Risk Reduction in Children and Adolescents. Pediatrics 2011;128:S213 2. NCEP Expert Panel. Circulation 2004;110:227 3. Mark Headley al. MARINA Cardiol. 2020 August 09;5(5):540-548. doi: 10.1001/jamacardio.2020.0013 Current Interpretive Data was last revised on 2023. Non-HDL Cholesterol 116 mg/dL [facility] Comment: Interpretive Data Ages < or = [...] last revised on 2017. Chol/HDL ratio 3 [facility] Blood 11/08/2024 8:45 AM CDT 11/08/2024 3:20 PM CDT us Kathy Kolb NP LAB BLOOD ORDERABLES Final Result [facility] [address] [place] [address] * (ABNORMAL) Comprehensive metabolic panel (11/08/2024 8:45 AM CDT) Sodium 142 135 - 145 mmol/L Potassium, pl 5.1(H) 3.3 - 4.9 mmol/L [facility] Chloride 108 97 - 110 mmol/L [facility] CO2 23 22 - 32 mmol/L [facility] Anion gap 11 2 - 15 mmol/L [facility] BUN 18 6 - 25 mg/dL [facility] Creatinine 1.11 0.80 - 1.30 mg/dL [facility] Glucose 117 70 - 199 mg/dL [facility] Comment: Interpretive Data Fasting glucose >/= 126 [...] interpretive data was last revised 2022. Calcium 9.3 8.5 - 10.3 mg/dL [facility] Bilirubin, total 0.3 0.1 - 1.2 mg/dL [facility] Protein, pl 6.5 6.5 - 8.5 g/dL [facility] Albumin 4.0 3.5 - 5.0 g/dL [facility] Alk phos 137(H) 40 - 130 Units/L [facility] ALT 78(H) 7 - 55 Units/L [facility] AST 26 10 - 50 Units/L [facility] Blood 11/08/2024 8:45 AM CDT 11/08/2024 3:20 PM CDT Kathy Kolb NP LAB BLOOD ORDERABLES Final Result [facility] [address] [place] [address] * - Miscellaneous Test (11/08/2024 8:45 AM CDT) Test name Testosterone, Free, Bioavailable and Total, MS Reference lab [facility] Specimen Type Blood [facility] Report Charted kkb [facility] Result see scanned report [facility] Reference lab test code [address] [facility] Sendout Complete [facility] Miscellaneous 11/08/2024 8:4 5 AM CDT 11/08/2024 4:32 PM CDT Narrative [facility] - 11/15/2024 7:41 AM CDT Vargas = $ _ CPT4 = 12313 /Multi = 41947 CPT4 = 34285 /Multi = _ Kathy Kolb NP LAB BLOOD ORDERABLES Final Result [facility] [address] [place] [address] * Hepatitis C antibody Blood Blood, Venous (01/11/2024 10:09 AM CDT) Hep C Ab Nonreactive Nonreactive Comment: Interpretive Data Nonreactive: Antibodies to HCV not detected. Does NOT exclude the possibility of recent exposure to HCV. Equivocal: Equivocal for HCV antibodies. Supplemental molecular testing will be automatically performed to determine infection status in accordance with current CDC screening recommendations. Reactive: Positive for HCV antibodies. This may represent current or past HCV infection. Supplemental molecular testing will be automatically performed to determine current infection status in accordance with current CDC screening recommendations. Interpretive data was last revised on 2019. Blood Venous blood specimen / Unknown 01/11/2024 10:09 AM CDT 01/11/2024 2:20 PM CDT Narrative [facility] - 01/11/2024 3:33 PM CDT FAX RESULTS TO DR ANTHONY RENO [phone] us Not In File Miscellaneous LAB MICROBIOLOGY - GEN ERAL ORDERABLES Final Result [facility] [address] [place] [address] * CT Abdomen WO Contrast (09/22/2021 3:07 PM CDT) Anatomical Region Laterality Modality Body N/A Computed Tomogra phy 09/22/2021 3:16 PM CDT Impressions 09/22/2021 3:16 PM CDT Cholelithiasis with mild gallbladder distention but no gallbladder wall thickening or pericholecystic fluid/stranding. Electronically signed by: Tanna Green M.D. Narrative 09/22/2021 3:16 PM CDT EXAMINATION: Computed tomography of the abdomen without intravenous contrast HISTORY: Epigastric pain. TECHNIQUE: Transaxial computed tomographic images of the abdomen were obtained without intravenous contrast according to the standard protocol. COMPARISON: Abdominal ultrasound 07/02/2013. FINDINGS: Imaged portions of the lung bases are clear. Heart is normal in size. No focal liver lesions. There is cholelithiasis with mild gallbladder distention. No gallbladder wall thickening or pericholecystic fluid. No biliary dilatation. The common bile duct measures 6 mm. Normal spleen. Normal pancreas. Normal adrenal glands. Imaged portions of the bowel show no obstruction. A few diverticuli are seen within the colon without evidence of diverticulitis. Appendix is normal. Small fat-containing umbilical hernia. No hydronephrosis or nephrolithiasis. No aortic aneurysm. Mild calcification of the aorta. No abnormal lymphadenopathy. No suspicious osseous lesions. Procedure Note Tanna Green MD - 09/22/2021 EXAMINATION: Computed tomography of the abdomen without intravenous contrast HISTORY: Epigastric pain. TECHNIQUE: Transaxial computed tomographic images of the abdomen were obtained without intravenous contrast according to the standard protocol. COMPARISON: Abdominal ultrasound 07/02/2013. FINDINGS: Imaged portions of the lung bases are clear. Heart is normal in size. No focal liver lesions. There is cholelithiasis with mild gallbladder distention. No gallbladder wall thickening or pericholecystic fluid. No biliary dilatation. The common bile duct measures 6 mm. Normal spleen. Normal pancreas. Normal adrenal glands. Imaged portions of the bowel show no obstruction. A few diverticuli are seen within the colon without evidence of diverticulitis. Appendix is normal. Small fat-containing umbilical hernia. No hydronephrosis or nephrolithiasis. No aortic aneurysm. Mild calcification of the aorta. No abnormal lymphadenopathy. No suspicious osseous lesions. IMPRESSION: Cholelithiasis with mild gallbladder distention but no gallbladder wall thickening or pericholecystic fluid/stranding. Electronically signed by: Tanna Green M.D. Kathy Kolb NP IM CT PROCEDURES Final Res ult from Last 3 Months or Most Recently Relevant to Health Maintenance Insurance MEDICARE [facility] UHC MEDICARE ADVANTAGE MEDICARE [facility] MEDICARE ADVANTAGE Advance Directives For more information, please contact: [phone] * Full Code (Latest Code Status on File) Date Activated Date Inactivated Comments 10/17/2024 3:39 PM 10/18/2024 4:31 PM Care Teams Vegetable I Farmworker Relationship Specialty Start Date End Date Nicol Nielsen MD [address] [facility] [address] [facility] [address] [facility] [address] [place] [address] PCP - General Internal Medicine 10/09/21 Nicol Nielsen MD Referring Physician Internal Medicine 11/10/17 [place] [address] [place] [address] Surgeon Neurosurgery 10/17/24
== END 2025-01-20 23:38 | disposition home or self-care (01) ==
PROVIDERS: Emergency Provider Student in an Organized Health Care Education/Training Program
DX: R20.2 Paresthesia of skin (principal); M54.10 Radiculopathy, site unspecified; F41.9 Anxiety disorder, unspecified; M19.90 Unspecified osteoarthritis, unspecified site
CPT/HCPCS: 72131; 96374; 99284; J1100